=== PATIENT | female | born 1935 ===

== ENCOUNTER 2023-12-09 07:10 | Outpatient (REF) | payer SELFPAY ==
[2023-12-09 07:56] LABS: Hematocrit 30.7 % (37.0-47.0); Hemoglobin 10.3 g/dl (12.0-16.0); Mean Corpuscular HGB Conc 33.6 g/dl (31.0-35.0); Mean Corpuscular Hemoglobin 30.8 pg (27.0-33.0); Mean Corpuscular Volume 91.9 fL (80.0-98.0); Mean Platelet Volume 8.4 fL (9.4-12.3); Platelet Count 665 X10*3/uL (160-400); Red Blood Count 3.34 X10*6/uL (4.20-5.50); Red Cell Distribution Width 14.6 % (11.0-16.0); White Blood Count 15.7 X10*3/uL (4.8-10.8)
[2023-12-09 08:15] LABS: Band Neutrophils Percent 0 % (3-5); Basophils Abs Manual 0.2 X10*3/uL (0.0-0.2); Basophils Percent Manual 1 % (0-2); Lymphocytes Absolute Manual 2.4 X10*3/uL (1.2-4.9); Lymphocytes Percent Manual 15 % (20-40); Monocytes Percent Manual 19 % (2-11); Neutrophils Absolute Manual 10.2 X10*3/uL (2.0-8.3); Neutrophils Percent Manual 65 % (45-73)
[2023-12-09 08:18] LABS: Burr Cells 1+ (0-2) /OIF; Hypochromasia 1+ (5-14) /OIF; Platelet Estimate INCREASED (NORMAL); Platelet Morphology Comment NORMAL; Polychromasia 1+ (0-2) /OIF; RBC Morphology NOTED
[2023-12-09 08:19] LABS: Alanine Aminotransferase 45 U/L (0-31); Albumin Level 3.2 g/dL (3.5-5.0); Alkaline Phosphatase 154 U/L (39-117); Anion Gap 15 (12-20); Aspartate Amino Transferase 34 U/L (5-31); Bilirubin Total 0.3 mg/dL (0.0-1.0); Blood Urea Nitrogen 11 mg/dL (9-16); Calcium 9.8 mg/dL (8.4-10.2); Carbon Dioxide 26 mmol/L (22-29); Chloride 96 mmol/L (96-108); Estimated Glomerular Filt Rate > 60; Glucose Random 97 mg/dL (60-115); Sodium 133 mmol/L (135-145); Total Protein 6.4 g/dL (6.5-8.0)
[2023-12-09 08:34] LABS: Thyroid Stimulating Hormone 4.71 uIU/mL (0.32-4.0)
[2023-12-12 20:44] LABS: Levetiracetam Keppra 32.2 mcg/mL (6.0-46.0)
== END 2023-12-09 07:11 | disposition home or self-care (01) ==
LOC: HO.MMNH1L 07:10
PROVIDERS: Visit Provider Hospitalist
DX: I10 Essential (primary) hypertension (principal); E87.1 Hypo-osmolality and hyponatremia; R33.9 Retention of urine, unspecified; Z79.899 Other long term (current) drug therapy
CPT/HCPCS: 36415; 80053; 80177; 84443; 85007; 85027

== ENCOUNTER 2024-03-27 11:15 | Outpatient (REF) | payer SELFPAY ==
--- OUTSIDE RECORDS SUMMARY | 2024-03-27 11:18 | XMS_ITS | Clinical Summary ---
Author Organization Unknown Care Team Providers Care Health Information Administrator Name Role Phone ERROL CASTELLANO, EVELYNE Unavailable Unavailable CHELLY PACKING MACHINE CAN FEEDER, DAWSON Unavailable Unavailchristin MALDONADO PT, LIBRADO Unavailable Unavailable HILL FUR EXAMINER, CHI Unavailable Unavailable [place] OT, JOE Unavailable Unavailable CONDINO COTTON WASHER/RODRIGUEZ, DERIC Unavailable Unav tanner MORA RN, JOSUE Unavailable Unavailable Payers Payer Name Policy Type Policy Number Effective Date Expira tion Date MEDICARE.NGS.PDGM [id number] Problems Condition Name Condition Details Condition Category Status Onset Date Resolution Date Last Treatment Date Treating Clinician Comments EPILEPSY, UNSP, NOT INTRACTABLE, WITH STATUS EPILEPTICUS Active 11-24 00:00: 00 HEMIPLEGIA, UNSPECIFIED AFFECTING RIGHT DOMINANT SIDE Active 11-24 00:00: 00 MUSCLE WASTING AND ATROPHY, NEC, MULTIPLE SITES Active 12-07 00:00: 00 ESSENTIAL (PRIMARY) HYPERTENSION Active 12-07 00:00: 00 UNSPECIFIED PROTEIN-OMAR ARISTIDES MALNUTRITION Active 12-07 00:00: 00 THROMBOCYTOP ENIA, UNSPECIFIED Active 12-07 00:00: 00 CONGENITAL MALFORMATION OF PERIPHERAL VASCULAR SYSTEM, UNSP Active 11-22 00:00: 00 WEDGE COMPRSN FX T11-T12 VERTEBRA, SUBS FOR FX W ROUTN HEAL Active 12-07 00:00: 00 HYPOTHYROIDI SM, UNSPECIFIED Active 03-29 00:00: 00 HYPERLIPIDEM IA, UNSPECIFIED Active 03-29 00:00: 00 PERSONAL HISTORY OF OTHER VENOUS THROMBOSIS AND EMBOLISM Active 11-22 00:00: 00 BODY MASS INDEX [BMI] 24.0-24.9, ADULT Active 12-07 00:00: 00 PERSONAL HISTORY OF URINARY (TRACT) INFECTIONS Active 8 00:00: 00 PRSNL HX OF TIA (TIA), AND CEREB INFRC W/O RESID DEFICITS Active 03-29 00:00: 00 HYPO-OSMOLAL ITY AND HYPONATREMIA Active 2023-03 00:00: 00 Allergies, Adverse Reactions, Alerts Allergy Name Allergy Type Status Severity Reaction(s) Onset Date Inactive Date Treating Clinician Comments CEPHALEXIN Propensity to adverse reactions Active 12-22 14:17: 05 PEANUT Propensity to adverse reactions Active 12-22 14:17: 13 Medications Ordered Medication Name Filled Medication Name Start Date Stop Date Current Medication? Ordering Clinician Indication Dosage Frequency Signature (SIG) Comments Components alendronate 70 mg tablet 12-10 00:00: 00 12-28 00:00 :00 No [id number] Per instruc tions Per instructio ns (route: oral) Med Classific ation: Endocrine Artificial Tears ([id number] omell-glyce rin) 1 %-0.2 %-0.2 % eye drops 2023-03 00:00: 00 Yes [id number] DRY EYES 1 drops 2 TIMES DAILY 1 drops 2 TIMES DAILY (route: ophthalmic (eye)) Med Classific ation: Ophthalmi c Agents Aspirin Childrens 81 mg chewable tablet 2023-03 00:00: 00 Yes [id number] CHOLESTEROL 1 tablet DAILY 1 tablet DAILY (route: oral) Med Classific ation: Hematolog ical Agents atorvastati n 40 mg tablet 2023-03 00:00: 00 Yes [id number] CHOLESTEROL 1 tablet BEDTIME 1 tablet BEDTIME (route: oral) Med Classific ation: Cardiovas cular Therapy Agents Citracal + Vitamin D Maximum 315 mg calcium-6.2 5 mcg (250 unit) tablet 2023-03 00:00: 00 Yes [id number] SUPPLEMENT 1 tablet 3 TIMES DAILY 1 tablet 3 TIMES DAILY (route: oral) Med Classific ation: Electroly te Balance-N utritiona l Products gabapentin 100 mg capsule 2023-03 00:00: 00 Yes [id number] SEIZURE 1 capsule 3 TIMES DAILY 1 capsule 3 TIMES DAILY (route: oral) Med Classific ation: Central Nervous System Agents levetiracet am 1,000 mg tablet 2023-03 00:00: 00 Yes [id number] SEIZURE 1 tablet 2 TIMES DAILY 1 tablet 2 TIMES DAILY (route: oral) Med Classific ation: Central Nervous System Agents levothyroxi ne 50 mcg tablet 2023-03 00:00: 00 Yes [id number] HYPOTHYROID 1 tablet DAILY 1 tablet DAILY (route: oral) Med Classific ation: Endocrine metoprolol tartrate 25 mg tablet 2023-03 00:00: 00 Yes [id number] HIGH BLOOD PRESSURE 0.5 tablet 2 TIMES DAILY 0.5 tablet 2 TIMES DAILY (route: oral) Med Classific ation: Cardiovas cular Therapy Agents Multivitami n 50 Plus tablet 2023-03 00:00: 00 Yes [id number] SUPPLEMENT 1 tablet DAILY 1 tablet DAILY (route: oral) Med Classific ation: Electroly te Balance-N utritiona l Products Pain Relief (acetaminop hen) 650 mg tablet,exte nded release 2023-03 00:00: 00 Yes [id number] ARTHRITIS PAIN 1 tablet EVERY 8 HOURS 1 tablet EVERY 8 HOURS (route: oral) Med Classific ation: Analgesic , Anti-infl ammatory or Antipyret ic PreserVisio n AREDS 2 Plus Multivit 200 mcg-15 mcg-5 mg-1 mg capsule 2023-03 00:00: 00 Yes [id number] SUPPLEMENT 1 capsule DAILY 1 capsule DAILY (route: oral) Med Classific ation: Electroly te Balance-N utritiona l Products Vital Signs Vital Name Observation Time Observation Value Commen ts Temperature 2024-02-01 10:38:00.000 97.1 [degF] Temperature 2024-01-31 13:55:00.000 96.8 [degF] Temperature 2024-01-27 12:50:00.000 97.4 [degF] Temperature 2024-01-26 13:27:00.000 97.3 [degF] Temperature 2024-01-19 11:27:00.000 97.6 [degF] Temperature 2024-01-17 09:15:00.000 97.1 [degF] Temperature 2024-01-13 10:39:00.000 97.7 [degF] Temperature 2024-01-12 18:38:00.000 97.1 [degF] Temperature 2024-01-05 11:36:00.000 97.2 [degF] Temperature 2024-01-05 08:30:00.000 97.6 [degF] Temperature 2024-01-03 14:56:00.000 97.1 [degF] Temperature 2023-12-29 14:21:00.000 97.7 [degF] BMI (%) 2023-12-29 14:06:45.000 22 kg/m2 Height 2023-12-29 14:06:27.000 59 [in_us] Pulse 2024-02-01 10:38:00.000 100 /min Pulse 2024-01-31 13:55:00.000 100 /min Pulse 2024-01-27 12:50:00.000 90 /min Pulse 2024-01-26 13:27:00.000 80 /min Pulse 2024-01-19 11:27:00.000 74 /min Pulse 2024-01-17 09:15:00.000 99 /min Pulse 2024-01-13 10:39:00.000 98 /min Pulse 2024-01-12 18:38:00.000 99 /min Pulse 2024-01-05 11:36:00.000 100 /min Pulse 2024-01-05 08:30:00.000 94 /min Pulse 2024-01-03 14:56:00.000 90 /min Pulse 2023-12-29 14:21:00.000 102 /min O2 Saturation (%) 2024-02-01 10:38:00.000 97 % O2 Saturation (%) 2024-01-31 13:55:00.000 100 % O2 Saturation (%) 2024-01-27 12:50:00.000 98 % O2 Saturation (%) 2024-01-26 13:27:00.000 97 % O2 Saturation (%) 2024-01-13 10:39:00.000 98 % O2 Saturation (%) 2024-01-05 11:36:00.000 99 % O2 Saturation (%) 2024-01-05 08:31:00.000 98 % O2 Saturation (%) 2024-01-03 14:56:00.000 99 % O2 Saturation (%) 2023-12-29 14:21:00.000 98 % Respirations 2024-02-01 10:38:00.000 16 /min Respirations 2024-01-31 13:55:00.000 16 /min Respirations 2024-01-27 12:50:00.000 18 /min Respirations 2024-01-26 13:27:00.000 18 /min Respirations 2024-01-19 11:27:00.000 18 /min Respirations 2024-01-17 09:15:00.000 16 /min Respirations 2024-01-13 10:39:00.000 18 /min Respirations 2024-01-12 18:38:00.000 16 /min Respirations 2024-01-05 11:36:00.000 16 /min Respirations 2024-01-05 08:30:00.000 18 /min Respirations 2024-01-03 14:56:00.000 16 /min Respirations 2023-12-29 14:21:00.000 18 /min Weight (lbs) 2023-12-29 14:06:45.000 111 [lb_av] Systolic Blood Pressure 2024-02-01 10:38:00.000 128 mm [Hg] Systolic Blood Pressure 2024-01-31 13:55:00.000 126 mm [Hg] Systolic Blood Pressure 2024-01-27 12:50:00.000 128 mm [Hg] Systolic Blood Pressure 2024-01-26 13:27:00.000 124 mm [Hg] Systolic Blood Pressure 2024-01-19 11:27:00.000 110 mm [Hg] Systolic Blood Pressure 2024-01-17 09:15:00.000 120 mm [Hg] Systolic Blood Pressure 2024-01-13 10:39:00.000 130 mm [Hg] Systolic Blood Pressure 2024-01-12 18:38:00.000 120 mm [Hg] Systolic Blood Pressure 2024-01-05 11:36:00.000 120 mm [Hg] Systolic Blood Pressure 2024-01-05 08:30:00.000 118 mm [Hg] Systolic Blood Pressure 2024-01-03 14:56:00.000 110 mm [Hg] Systolic Blood Pressure 2023-12-29 14:21:00.000 126 mm [Hg] Diastolic Blood Pressure 2024-02-01 10:38:00.000 68 mm [Hg] Diastolic Blood Pressure 2024-01-31 13:55:00.000 70 mm [Hg] Diastolic Blood Pressure 2024-01-27 12:50:00.000 88 mm [Hg] Diastolic Blood Pressure 2024-01-26 13:27:00.000 76 mm [Hg] Diastolic Blood Pressure 2024-01-19 11:27:00.000 68 mm [Hg] Diastolic Blood Pressure 2024-01-17 09:15:00.000 70 mm [Hg] Diastolic Blood Pressure 2024-01-13 10:39:00.000 60 mm [Hg] Diastolic Blood Pressure 2024-01-12 18:38:00.000 80 mm [Hg] Diastolic Blood Pressure 2024-01-05 11:36:00.000 64 mm [Hg] Diastolic Blood Pressure 2024-01-05 08:30:00.000 62 mm [Hg] Diastolic Blood Pressure 2024-01-03 14:56:00.000 60 mm [Hg] Diastolic Blood Pressure 2023-12-29 14:21:00.000 60 mm [Hg] Plan of Treatment Planned Activity Planned Date Details Comments Future Scheduled Test RN TO OBSE RVE, ASSESS, EVALUATE, AND DEVELOP AN INDIVIDUALIZED PLAN OF CARE. AGENCY MAY ACCEPT ORDERS FROM CONSULTING PHYSICIANS. REGISTERED NURSETO OBSERVE AND ASSESS/LICENSED PRACTICAL NURSE TO OBSERVE FOR RISK FOR FALLS AND INSTRUCT IN FALL PREVENTION, HOME SAFETY, MEDICATION MANAGEMENT, INFECTION PREVENTION, AND NUTRITION MANAGEMENT. REGISTERED NURSE/LICENSED PRACTICAL NURSE MAY PERFORM O2 SATURATION LEVEL ON ADMISSION AND PRN FOR RN TO ASSESS/PACKING MACHINE CAN FEEDER TO OBSERVE PATIENT, WITH NOTIFICATION TO THE PHYSICIAN IF SATURATION IS 90% IN THE ABSENCE OF MORE SPECIFIC PARAMETERS FROM THE PHYSICIAN. AGENCY MAY PERFORM A RESUMPTION OF CARE VISIT FOLLOWING ANY HOSPITAL ADMISSION. REGISTERED NURSE/LICENSED PRACTICAL NURSE TO MONITOR CO-MORBID CONDITIONS LISTED ON THE PLAN OF CARE AND ANY NEW CONDITIONS THAT PRESENT THEMSELVES DURING THIS EPISODE TO IDENTIFY CHANGES AND INTERVENE TO MINIMIZE COMPLICATIONS. [code = RN TO OBSERVE, ASSESS, EVALUATE, AND DEVELOP AN INDIVIDUALIZED PLAN OF CARE. AGENCY MAY ACCEPT ORDERS FROM CONSULTING PHYSICIANS. REGISTERED NURSETO OBSERVE AND ASSESS/LICENSED PRACTICAL NURSE TO OBSERVE FOR RISK FOR FALLS AND INSTRUCT IN FALL PREVENTION, HOME SAFETY, MEDICATION MANAGEMENT, INFECTION PREVENTION, AND NUTRITION MANAGEMENT. REGISTERED NURSE/LICENSED PRACTICAL NURSE MAY PERFORM O2 SATURATION LEVEL ON ADMISSION AND PRN FOR RN TO ASSESS/PACKING MACHINE CAN FEEDER TO OBSERVE PATIENT, WITH NOTIFICATION TO THE PHYSICIAN IF SATURATION IS 90% IN THE ABSENCE OF MORE SPECIFIC PARAMETERS FROM THE PHYSICIAN. AGENCY MAY PERFORM A RESUMPTION OF CARE VISIT FOLLOWING ANY HOSPITAL ADMISSION. REGISTERED NURSE/LICENSED PRACTICAL NURSE TO MONITOR CO-MORBID CONDITIONS LISTED ON THE PLAN OF CARE AND ANY NEW CONDITIONS THAT PRESENT THEMSELVES DURING THIS EPISODE TO IDENTIFY CHANGES AND INTERVENE TO MINIMIZE COMPLICATIONS.] Future Scheduled Test RISK FOR H OSPITALIZATION; REGISTERED NURSE TO ASSESS /TEACH, LICENSED PRACTICAL NURSE TO OBSERVE/TEACH PATIENT/CAREGIVER ON RISK FOR HOSPITALIZATION/EMERGENCY ROOM VISITS, TEACH SIGNS AND SYMPTOMS THAT PUT PATIENT AT RISK, WHEN TO NOTIFY NURSE/PHYSICIAN OF COMPLICATIONS/DECLINE, AND WHEN TO CALL 911. [code = RISK FOR HOSPITALIZATION; REGISTERED NURSE TO ASSESS /TEACH, LICENSED PRACTICAL NURSE TO OBSERVE/TEACH PATIENT/CAREGIVER ON RISK FOR HOSPITALIZATION/EMERGENCY ROOM VISITS, TEACH SIGNS AND SYMPTOMS THAT PUT PATIENT AT RISK, WHEN TO NOTIFY NURSE/PHYSICIAN OF COMPLICATIONS/DECLINE, AND WHEN TO CALL 911.] Future Scheduled Test MEDICATION MANAGEMENT; REGISTERED NURSE/LICENSED PRACTICAL NURSE TO REVIEW MEDICATIONS FOR INTERACTIONS, EFFECTIVENESS OF DRUG THERAPY, AND SIGNS/SYMPTOMS OF ADVERSE REACTIONS. MAY INSTRUCT AND REINFORCE MEDICATION TEACHING RELATED TO THE USE OF MEDICATIONS, DOSAGE, FREQUENCY, PURPOSE, SIDE EFFECTS, AND TO REPORT COMPLICATIONS. [code = MEDICATION MANAGEMENT; REGISTERED NURSE/LICENSED PRACTICAL NURSE TO REVIEW MEDICATIONS FOR INTERACTIONS, EFFECTIVENESS OF DRUG THERAPY, AND SIGNS/SYMPTOMS OF ADVERSE REACTIONS. MAY INSTRUCT AND REINFORCE MEDICATION TEACHING RELATED TO THE USE OF MEDICATIONS, DOSAGE, FREQUENCY, PURPOSE, SIDE EFFECTS, AND TO REPORT COMPLICATIONS.] Future Scheduled Test CARDIOVASC ULAR SYSTEM; REGISTERED NURSE TO ASSESS /TEACH, LICENSED PRACTICAL NURSE TO OBSERVE/TEACH RELATED TO ALTERED CARDIOVASCULAR STATUS TO MINIMIZE COMPLICATIONS AND REDUCE HOSPITALIZATION. [code = CARDIOVASCULAR SYSTEM; REGISTERED NURSE TO ASSESS /TEACH, LICENSED PRACTICAL NURSE TO OBSERVE/TEACH RELATED TO ALTERED CARDIOVASCULAR STATUS TO MINIMIZE COMPLICATIONS AND REDUCE HOSPITALIZATION.] Future Scheduled Test HYPERTENSI ON MANAGEMENT; REGISTERED NURSE TO ASSESS AND TEACH/LICENSED PRACTICAL NURSE TO OBSERVE AND TEACH WARNING SIGNS AND SYMPTOMS TO AVOID HOSPITALIZATION. [code = HYPERTENSION MANAGEMENT; REGISTERED NURSE TO ASSESS AND TEACH/LICENSED PRACTICAL NURSE TO OBSERVE AND TEACH WARNING SIGNS AND SYMPTOMS TO AVOID HOSPITALIZATION.] Future Scheduled Test SKIN INTEG RITY REGISTERED NURSE TO ASSESS AND TEACH/LICENSED PRACTICAL NURSE TO OBSERVE AND TEACH INTEGUMENTARY STATUS TO IDENTIFY CHANGES AND INTERVENE TO MINIMIZE COMPLICATIONS. PROVIDE SKILLED TEACHING OF GENERAL WOUND AND SKIN CARE AND PREVENTION RELATED TO POTENTIAL FOR ALTERED SKIN INTEGRITY [code = SKIN INTEGRITY REGISTERED NURSE TO ASSESS AND TEACH/LICENSED PRACTICAL NURSE TO OBSERVE AND TEACH INTEGUMENTARY STATUS TO IDENTIFY CHANGES AND INTERVENE TO MINIMIZE COMPLICATIONS. PROVIDE SKILLED TEACHING OF GENERAL WOUND AND SKIN CARE AND PREVENTION RELATED TO POTENTIAL FOR ALTERED SKIN INTEGRITY ] Future Scheduled Test NEUROLOGIC AL SYSTEM MANAGEMENT; REGISTERED NURSE TO ASSESS AND TEACH/LICENSED PRACTICAL NURSE TO OBSERVEAND TEACH RELATED TO ALTERED NEUROLOGICAL STATUS TO MINIMIZE COMPLICATIONS AND REDUCE HOSPITALIZATION. [code = NEUROLOGICAL SYSTEM MANAGEMENT; REGISTERED NURSE TO ASSESS AND TEACH/LICENSED PRACTICAL NURSE TO OBSERVEAND TEACH RELATED TO ALTERED NEUROLOGICAL STATUS TO MINIMIZE COMPLICATIONS AND REDUCE HOSPITALIZATION.] Future Scheduled Test SEIZURE DI SORDER MANAGEMENT; REGISTERED NURSE/LICENSED PRACTICAL NURSE TO PROVIDE INSTRUCTION REGARDING MANAGEMENT OF SEIZURE DISORDER AND SEIZURE PRECAUTIONS. [code = SEIZURE DISORDER MANAGEMENT; REGISTERED NURSE/LICENSED PRACTICAL NURSE TO PROVIDE INSTRUCTION REGARDING MANAGEMENT OF SEIZURE DISORDER AND SEIZURE PRECAUTIONS.] Future Scheduled Test PAIN MANAG EMENT; REGISTERED NURSE TO ASSESS AND TEACH/LICENSED PRACTICAL NURSE TO OBSERVE AND TEACH AND PROVIDE EDUCATION ON PAIN MANAGEMENT TECHNIQUES. [code = PAIN MANAGEMENT; REGISTERED NURSE TO ASSESS AND TEACH/LICENSED PRACTICAL NURSE TO OBSERVE AND TEACH AND PROVIDE EDUCATION ON PAIN MANAGEMENT TECHNIQUES.] Future Scheduled Test FALL REDUC TION MANAGEMENT; REGISTERED NURSE TO ASSESS AND TEACH/LICENSED PRACTICAL NURSE TO OBSERVE AND TEACH ON EDUCATION AND INTERVENTION TO IDENTIFY FALL RISK FACTORS SUCH MEDICATIONS THAT MAY CAUSE DIZZINESS, CHRONIC DISEASES, PSYCHOLOGICAL FACTORS, AND EMPOWER/EDUCATE PATIENT/CAREGIVER TO MINIMIZE FALL RISK. [code = FALL REDUCTION MANAGEMENT; REGISTERED NURSE TO ASSESS AND TEACH/LICENSED PRACTICAL NURSE TO OBSERVE AND TEACH ON EDUCATION AND INTERVENTION TO IDENTIFY FALL RISK FACTORS SUCH MEDICATIONS THAT MAY CAUSE DIZZINESS, CHRONIC DISEASES, PSYCHOLOGICAL FACTORS, AND EMPOWER/EDUCATE PATIENT/CAREGIVER TO MINIMIZE FALL RISK.] Future Scheduled Test GENITOURIN ZELDA MANAGEMENT; REGISTERED NURSE TO ASSESS AND TEACH/LICENSED PRACTICAL NURSE TO OBSERVE AND TEACH RELATED TO ALTERED GENITOURINARY STATUS TO MINIMIZE COMPLICATIONS AND REDUCE HOSPITALIZATION. [code = GENITOURINARY MANAGEMENT; REGISTERED NURSE TO ASSESS AND TEACH/LICENSED PRACTICAL NURSE TO OBSERVE AND TEACH RELATED TO ALTERED GENITOURINARY STATUS TO MINIMIZE COMPLICATIONS AND REDUCE HOSPITALIZATION.] Future Scheduled Test URINARY TR ACT INFECTION MANAGEMENT; REGISTERED NURSELICENSED PRACTICAL NURSE TO PROVIDE SKILLED TEACHING AND SELF- CARE MANAGEMENT RELATED TO UTI TO MINIMIZE COMPLICATIONS AND REDUCE THE RISK OF HOSPITALIZATION. [code = URINARY TRACT INFECTION MANAGEMENT; REGISTERED NURSELICENSED PRACTICAL NURSE TO PROVIDE SKILLED TEACHING AND SELF- CARE MANAGEMENT RELATED TO UTI TO MINIMIZE COMPLICATIONS AND REDUCE THE RISK OF HOSPITALIZATION.] Future Scheduled Test AGENCY MAY PERFORM A RESUMPTION OF CARE VISIT FOLLOWING ANY HOSPITAL ADMISSION. OT TO EVALUATE, OBSERVE / ASSESS, AND MONITOR, COTTON WASHER TO OBSERVE AND MONITOR, PROVIDE SKILLED THERAPEUTIC INTERVENTION, ACTIVITY, EDUCATION, AND TRAINING TO ADDRESS; BATHING/SHOWERING (OT/COTTON WASHER) DRESSING (OT/COTTON WASHER) ACTIVITIES OF DAILY LIVING (OT/JASMEET) TOILET TRANSFER (OT/JASMEET) BATH/SHOWER TRANSFER (OT/JASMEET) PERSONAL SAFETY AND EMERGENCY MANAGEMENT(OT/JASMEET) POSTURAL CONTROL/BALANCE (OT/JASMEET) THERAPEUTIC EXERCISE (OT/COTTON WASHER) ENERGY CONSERVATION/ACTIVITY DEMAND (OT/COTTON WASHER) OT/COTTON WASHER TO MONITOR AND EDUCATE ON OXYGEN SATURATION DURING ADLS/IADLS, NOTIFY PHYSICIAN AND/OR THE RN CLINICAL SANDER WOODEN PENCILS FOR PHYSICIAN NOTIFICATION AND IF O2 SATS BELOW 90% AFTER 10 MIN OF REST. OT/JASMEET TO MONITOR FOR SIGNS AND SYMPTOMS OF UTI AND EDUCATE PATIENT/CAREGIVER TO MINIMIZE RISK OF DEVELOPING A UTI. OT / COTTON WASHER TO IDENTIFY FALL RISK FACTORS; EDUCATE THE PATIENT/CAREGIVER ON WAYS TO REDUCE FALL RISK FACTORS AND ESTABLISH HOME EXERCISE PROGRAM TO MINIMIZE FALL RISK. MAY TEACH THE PATIENT FLOOR RECOVERY WHEN CLINICALLY APPROPRIATE. OT / COTTON WASHER TO EDUCATE ON SEIZURE DISORDER SELF MANAGEMENT. [code = AGENCY MAY PERFORM A RESUMPTION OF CARE VISIT FOLLOWING ANY HOSPITAL ADMISSION. OT TO EVALUATE, OBSERVE / ASSESS, AND MONITOR, COTTON WASHER TO OBSERVE AND MONITOR, PROVIDE SKILLED THERAPEUTIC INTERVENTION, ACTIVITY, EDUCATION, AND TRAINING TO ADDRESS; BATHING/SHOWERING (OT/JASMEET) DRESSING (OT/COTTON WASHER) ACTIVITIES OF DAILY LIVING (OT/COTTON WASHER) TOILET TRANSFER (OT/JASMEET) BATH/SHOWER TRANSFER (OT/COTTON WASHER) PERSONAL SAFETY AND EMERGENCY MANAGEMENT(OT/COTTON WASHER) POSTURAL CONTROL/BALANCE (OT/JASMEET) THERAPEUTIC EXERCISE (OT/JASMEET) ENERGY CONSERVATION/ACTIVITY DEMAND (OT/COTTON WASHER) OT/COTTON WASHER TO MONITOR AND EDUCATE ON OXYGEN SATURATION DURING ADLS/IADLS, NOTIFY PHYSICIAN AND/OR THE RN CLINICAL SANDER WOODEN PENCILS FOR PHYSICIAN NOTIFICATION AND IF O2 SATS BELOW 90% AFTER 10 MIN OF REST. OT/JASMEET TO MONITOR FOR SIGNS AND SYMPTOMS OF UTI AND EDUCATE PATIENT/CAREGIVER TO MINIMIZE RISK OF DEVELOPING A UTI. OT / JASMEET TO IDENTIFY FALL RISK FACTORS; EDUCATE THE PATIENT/CAREGIVER ON WAYS TO REDUCE FALL RISK FACTORS AND ESTABLISH HOME EXERCISE PROGRAM TO MINIMIZE FALL RISK. MAY TEACH THE PATIENT FLOOR RECOVERY WHEN CLINICALLY APPROPRIATE. OT / COTTON WASHER TO EDUCATE ON SEIZURE DISORDER SELF MANAGEMENT.] Future Scheduled Test AGENCY MAY PERFORM A RESUMPTION OF CARE VISIT FOLLOWING ANY HOSPITAL ADMISSION. PT TO EVALUATE, OBSERVE / ASSESS, AND MONITOR, FUR EXAMINER TO OBSERVE AND MONITOR, PROVIDE SKILLED THERAPEUTIC INTERVENTION, ACTIVITY, EDUCATION, AND TRAINING TO ADDRESS; PT/FUR EXAMINER TO PROVIDE GAIT TRAINING FOR IMPROVED MOBILITY AND /OR TO NORMALIZE GAIT PATTERN NEUROMUSCULAR RE-EDUCATION / BALANCE / POSTURAL CONTROL (PT) THERAPEUTIC EXERCISES AND ESTABLISHING A HOME EXERCISE PROGRAM (PT/FUR EXAMINER) PT/FUR EXAMINER TO PROVIDE STAIR TRAINING BED TRANSFERS (PT/FUR EXAMINER) SIT TO/FROM STAND TRANSFERS (PT/FUR EXAMINER) PT / FUR EXAMINER TO MONITOR AND EDUCATE ON OXYGEN SATURATION DURING ADLS/IADLS, NOTIFY PHYSICIAN AND/OR THE RN CLINICAL SANDER WOODEN PENCILS FOR PHYSICIAN NOTIFICATION AND IF O2 SATS BELOW PHYSICIAN ORDERED PARAMETERS AFTER 10 MIN OF REST PT/FUR EXAMINER TO IDENTIFY FALL RISK FACTORS; EDUCATE THE PATIENT/CAREGIVER ON WAYS TO REDUCE FALL RISK FACTORS AND ESTABLISH HOME EXERCISE PROGRAM TO MINIMIZE FALL RISK. MAY TEACH THE PATIENT FLOOR RECOVERY WHEN CLINICALLY APPROPRIATE PT / FUR EXAMINER MAY EDUCATE ON PAIN MANAGEMENT CLINICALLY INDICATED, INCLUDING NON-PHARMACOLOGICAL PAIN REDUCTION TECHNIQUES [code = AGENCY MAY PERFORM A RESUMPTION OF CARE VISIT FOLLOWING ANY HOSPITAL ADMISSION. PT TO EVALUATE, OBSERVE / ASSESS, AND MONITOR, FUR EXAMINER TO OBSERVE AND MONITOR, PROVIDE SKILLED THERAPEUTIC INTERVENTION, ACTIVITY, EDUCATION, AND TRAINING TO ADDRESS; PT/FUR EXAMINER TO PROVIDE GAIT TRAINING FOR IMPROVED MOBILITY AND /OR TO NORMALIZE GAIT PATTERN NEUROMUSCULAR RE-EDUCATION / BALANCE / POSTURAL CONTROL (PT) THERAPEUTIC EXERCISES AND ESTABLISHING A HOME EXERCISE PROGRAM (PT/FUR EXAMINER) PT/FUR EXAMINER TO PROVIDE STAIR TRAINING BED TRANSFERS (PT/FUR EXAMINER) SIT TO/FROM STAND TRANSFERS (PT/FUR EXAMINER) PT / FUR EXAMINER TO MONITOR AND EDUCATE ON OXYGEN SATURATION DURING ADLS/IADLS, NOTIFY PHYSICIAN AND/OR THE RN CLINICAL SANDER WOODEN PENCILS FOR PHYSICIAN NOTIFICATION AND IF O2 SATS BELOW PHYSICIAN ORDERED PARAMETERS AFTER 10 MIN OF REST PT/FUR EXAMINER TO IDENTIFY FALL RISK FACTORS; EDUCATE THE PATIENT/CAREGIVER ON WAYS TO REDUCE FALL RISK FACTORS AND ESTABLISH HOME EXERCISE PROGRAM TO MINIMIZE FALL RISK. MAY TEACH THE PATIENT FLOOR RECOVERY WHEN CLINICALLY APPROPRIATE PT / FUR EXAMINER MAY EDUCATE ON PAIN MANAGEMENT CLINICALLY INDICATED, INCLUDING NON-PHARMACOLOGICAL PAIN REDUCTION TECHNIQUES ] Goal 2024-02-26 Patient Goal - G ET BACK TO WALKING WITHOUT A DEVICE, GET MEDICALLY STABLE Goal Provider Goal - A PLAN OF CARE WILL BE ESTABLISHED THAT MEETS THE PATIENTS NEEDS. PATIENT WILL DEMONSTRATE OXYGEN SATURATION WITHIN NORMAL LIMITS OR PATIENTS OPTIMAL LEVEL ESTABLISHED BY THE PHYSICIAN THROUGHOUT CARE. CHANGES TO CO-MORBID CONDITIONS AND ANY NEW CONDITIONS WILL BE IDENTIFIED AND REPORTED TO THE PHYSICIAN. Goal Provider Goal - PATIENT/CAREGIVER WILL VERBALIZE UNDERSTANDING OF SIGNS AND SYMPTOMS THAT PUT THE PATIENT AT RISK FOR HOSPITALIZATION /EMERGENCY ROOM VISITS, WHEN TO NOTIFY NURSE/PHYSICIAN OF COMPLICATIONS/DECLINE AND WHEN TO CALL 911. Goal Provider Goal - PATIENT/CAREGIVER TO VERBALIZE, AND CONSISTENTLY DEMONSTRATE EFFECTIVE, SAFE MANAGEMENT OF MEDICATION INCLUDING KNOWLEDGE OF EFFECTIVENESS, POTENTIAL SIDE EFFECTS AND DRUG REACTIONS AND WHEN TO CONTACT THE APPROPRIATE CARE PROVIDER. PATIENT/CAREGIVER WILL BE ABLE TO VERBALIZE UNDERSTANDING OF MEDICATION REGIMEN AND ACCURATELY TAKE MEDICATIONS PRESCRIBED WITHOUT ADVERSE EFFECTS BY EOE Goal Provider Goal - PATIENT / CAREGIVER WILL VERBALIZE/DEMONSTRATE UNDERSTANDING OF MEASURES TO MANAGE ALTERED CARDIOVASCULAR STATUS BY EOE. Goal Provider Goal - PATIENT / CAREGIVER WILL VERBALIZE/DEMONSTRATE AN ABILITY TO ADHERE TO SELF-MANAGEMENT OF HTN TO MINIMIZE COMPLICATIONS AND AVOID HOSPITALIZATION BY END OF EPISODE. Goal Provider Goal - CHANGES IN SKIN INTEGRITY STATUS WILL BE IDENTIFIED AND REPORTED TO THE PHYSICIAN FOR PROMPT INTERVENTION. PATIENT / CAREGIVER WILL VERBALIZE/DEMONSTRATE ADEQUATE KNOWLEDGE OF INTEGUMENTARY STATUS AND APPROPRIATE MEASURES TO PROMOTE SKIN INTEGRITY AND PREVENT INJURY BY EOE Goal Provider Goal - PATIENT / CAREGIVER WILL VERBALIZE/DEMONSTRATE UNDERSTANDING OF MEASURES TO MANAGE ALTERED NEUROLOGICAL STATUS BY EOE. Goal Provider Goal - PATIENT/CAREGIVER WILL VERBALIZE UNDERSTANDING OF CARE AND MANAGEMENT OF SEIZURE DISORDER BY EOE. Goal Provider Goal - PATIENT / CAREGIVER WILL VERBALIZE / DEMONSTRATE UNDERSTANDING OF PAIN CONTROL MEASURES BY EOE Goal Provider Goal - PATIENT/CAREGIVER ABLE TO IDENTIFY FALL RISK FACTORS AND IMPLEMENT STRATEGIES TO MINIMIZE FALL RISK. PATIENT/CAREGIVER WILL VERBALIZE/DEMONSTRATE AN ABILITY TO ADHERE TO FALL REDUCTION SELF MANAGEMENT AND LIFE-STYLE CHANGES AT DISCHARGE. PERSONAL GOAL(S) STATED BY PATIENT/CAREGIVER WILL BE MET BY EOE. Goal Provider Goal - PATIENT / CAREGIVER WILL VERBALIZE/DEMONSTRATE UNDERSTANDING OF MEASURES TO MANAGE ALTERED GENITOURINARY STATUS BY END OF EPISODE. Goal Provider Goal - PATIENT/CAREGIVER WILL VERBALIZE/DEMONSTRATE UNDERSTANDING OF CARE AND MANAGEMENT OF URINARY TRACT INFECTION BY EOE. Goal Provider Goal - OT STG: PATIENT WILL DEMONSTRATE IMPROVED ABILITY TO PERFORM PERSONAL HYGIENE FROM MIN A TO MODIFIED INDEPENDENCE WITHIN 4 WEEKS OT LTG: PATIENT WILL DEMONSTRATE IMPROVED ABILITY TO PERFORM BATHING IN THE SHOWER WITH ADAPTIVE EQUIPMENT AND UTILIZING ENERGY CONSERVATION AND WORK SIMPLIFICATION TECHNIQUES FROM UNABLE TO MINIMAL ASSISTANCE WITH DECREASED FEAR OF FALLING WITHIN 8 WEEKS. OT LTG: PATIENT WILL DEMONSTRATE IMPROVED ABILITY TO PERFORM SHOWER TRANSFER FROM MOD A TO MODIFIED INDEPENDENCE UTILIZING RECOMMENDED ADAPTIVE EQUIPMENT WITHIN 5 WEEKS. OT STG: PATIENT WILL DEMONSTRATE IMPROVED ABILITY TO PERFORM TOILET TRANSFER FROM MOD A TO MODIFIED INDEPENDENT UTILIZING LRD WITHIN 5 WEEKS OT STG: PATIENT WILL DEMONSTRATE IMPROVED ABILITY TO PERFORM /LB DRESSING INCLUDING ITEM RETRIEVAL FROM MIN A TO MODIFIED INDEPENDENCE UTILIZING ADAPTIVE EQUIPMENT NEEDED WITHIN 4 WEEKS OT LTG: PATIENT WILL DEMONSTRATE IMPROVED INDEPENDENCE WITH ACTIVITIES OF DAILY LIVING (ADL) SKILLS EVIDENCED BY AN IMPROVEMENT IN MODIFIED RODRÍGUEZ INDEX SCORE FROM 63/100 TO 85/100 INDICATING DECREASED DEPENDENCY ON CAREGIVER ASSISTANCE WITHIN 8 WEEKS. OT LTG: PATIENT WILL DEMONSTRATE THE ABILITY TO COMPLETE LIGHT HEALTHY SNACK AND BEVERAGE PREPARATION AND CLEANUP FROM UNABLE TO MODIFIED INDEPENDENCE UTILIZING ADAPTIVE EQUIPMENT NEEDED IN INCORPORATING ENERGY CONSERVATION AND WORK SIMPLIFICATION TECHNIQUES INTO TASK WITHIN 8 WEEKS OT LTG: PATIENT WILL DEMONSTRATE DECREASED FALL RISK EVIDENCED BY AN IMPROVEMENT IN FUNCTIONAL REACH SCORE FROM 6 INCHES TO 8 INCHES FOR IMPROVED ADL/IADL COMPLETION AND HOME SAFETY BY DISCHARGE WITHIN 8 WEEKS OT LTG: PATIENT WILL DEMONSTRATE IMPROVED UE MUSCLE STRENGTH EVIDENCED BY AN IMPROVEMENT IN MMT/FUNCTIONAL STRENGTH FROM 3+TO 4-/5 IN ORDER TO PERFORM ADLS MORE INDEPENDENTLY AND BE INDEPENDENT WITH HEP WITHIN 8 WEEKS OT STG ; PATIENT WILL DEMONSTRATE IMPROVED ABILITY TO GET OUT OF HOME IN CASE OF EMERGENCY FROM MOD A TO SBA WITHIN 5 WEEKS. OT LTG: PATIENT WILL MAINTAIN OXYGEN SATURATION WITHIN PHYSICIAN ORDERED PARAMETERS THROUGHOUT THE EPISODE OF CARE. OT GOAL: PATIENT WILL NOT EXHIBIT SIGNS AND SYMPTOMS OF UTI THROUGHOUT THE EPISODE OF CARE. OT LTG: PATIENT/CAREGIVER WILL BE ABLE TO IMPLEMENT RECOMMENDATIONS SPECIFIC TO FALL REDUCTION FOR IMPROVED ADL/IADL COMPLETION AND HOME SAFETY BY END OF EPISODE. OT LTG: PATIENT/CAREGIVER WILL BE ABLE TO VERBALIZE UNDERSTANDING OF SEIZURES, SIGNS/SYMPTOMS TO REPORT, WELL SELF-MANAGEMENT AND LIFE-STYLE CHANGES TO IMPROVE QUALITY OF LIFE AND REDUCE CAREGIVER BURDEN BY END OF EPISODE. Goal Provider Goal - PATIENT WILL IMPROVE HOUSEHOLD GAIT AND STAIRS FROM MIN AND MOD A TO INDEPENDENT IN 8 WEEKS TO PROMOTE IMPROVED FUNCTIONAL MOBILITY WITH SPC PATIENT WILL IMPROVE TUG SCORE FROM 28 TO 20 SECONDS AND FIVE TIMES SIT TO STAND FROM 36 TO 20 SECONDS IN 8 WEEKS TO PROMOTE IMPROVED BALANCE INPUT INTEGRATION PATIENT WILL DEMO INDEP PERFORMANCE OF STANDING THEREX AND BALANCE ACTIVITY IN 4 WEEKS TO PROMOTE LE STABILITY AND ACTIVITY TOLERANCE PATIENT WILL IMPROVE HOUSEHOLD TRANSFERS FROM MIN A TO INDEPENDENT IN 4 WEEKS TO PROMOTE LE STABILITY AND ACTIVITY TOLERANCE PT LTG: PATIENT WILL MAINTAIN OXYGEN SATURATION WITHIN PHYSICIAN ORDERED PARAMETERS THROUGHOUT EPISODE OF CARE. PT LTG: PATIENT/CAREGIVER WILL DEMONSTRATE ADHERENCE TO FALL REDUCTION SELF-MANAGEMENT AND REDUCING FALL RISK FACTORS TO MINIMIZE FALL RISK BY END OF EPISODE PT LTG: PATIENT WILL BE INDEPENDENT WITH IMPLEMENTATION OF HEP WITHIN 4 WEEKS PT LTG: CAREGIVER WILL BE INDEPENDENT ASSISTING PATIENT TO COMPLETE HEP WITHIN 4 WEEKS PT GOAL: PATIENT WILL DEMONSTRATE UNDERSTANDING OF PAIN MANAGEMENT Reason for Visit MODERATE ASSIST WITH TRANSFER/AMBULATION/ADLS Encounters Start Date/Time End Date/Time Encounter Type Admission Type Attending [facility] Care Department Encounter ID Discharge Date Discharge Status Discharge Condition Discharge Reason Percent Goals Met 2023-12-29 00:00:00 2024-02-26 00:00:00 Outpatient NEW ADMISSION [facility] [id number] 2024-02-26 00:00:00 DISCHARGED /TRANSFERR ED TO [facility] FOR [facility]IENT CARE MODERATE ASSIST WITH TRANSFER/A MBULATION/ ADLS HH ONLY - TRANSFER TO HOSPITAL [id number]
[2024-03-27 13:06] LABS: CDiff Gene PCR NEGATIVE (Negative)
== END 2024-03-27 11:16 | disposition home or self-care (01) ==
LOC: HO.MMNH3L 11:15
PROVIDERS: Visit Provider Hospitalist
DX: R19.7 Diarrhea, unspecified (principal)
CPT/HCPCS: 87493